=== PATIENT | male | born 1985 | race Caucasian/White ===

== ENCOUNTER 2017-02-24 18:15 | Emergency (ER) | payer OTHER ==
[~2017-02-24] VITALS: Ht 188 cm; Wt 127.8 kg
[2017-02-24] MEDS ORDERED: OMNIPAQUE 350 MG/ML, 100ML BOTTLE ONE (19:19)
[2017-02-24] MEDS ORDERED: SODIUM CHLORIDE 0.9% 1,000ML IVBOLUS ONE (19:30)
[2017-02-24] MEDS ORDERED: CLINDAMYCIN PMX 600MG/50ML 50 ML IVPB ONE (19:30)
[2017-02-24] MEDS ORDERED: SODIUM CHLORIDE FLUSH 10ML SYR IVF ONE (19:30)
[2017-02-24] MEDS ORDERED: CLINDAMYCIN PMX 600MG/50ML 50 ML ONE (19:31)
[2017-02-24 19:48] LABS: BLOOD UREA NITROGEN 9 mg/dL (7-18)
[2017-02-24 20:50] VITALS: BP 152/68
== END 2017-02-24 21:47 | disposition home or self-care (01) ==
LOC: ED 21:00
DX: J36 Peritonsillar abscess (principal); R07.0 Pain in throat; F17.210 Nicotine dependence, cigarettes, uncomplicated
CPT/HCPCS: 36415; 70491; 80048; 82040; 85025; 96365; 99285; J7030; Q9967

== ENCOUNTER 2018-04-24 14:23 | Emergency (ER) | payer OTHER ==
[~2018-04-24] VITALS: Ht 185.4 cm; Wt 128.1 kg
[2018-04-24 14:41] VITALS: BP 153/91
[2018-04-24] MEDS ORDERED: DEXAMETHASONE 4 MG TABLET ONE ×2 (14:56→14:58)
[2018-04-24] MEDS ORDERED: DEXAMETHASONE 4 MG TABLET PO ONE (15:00)
[2018-04-24] MEDS ORDERED: HYDROcodone/APAP 7.5-325MG/15ML UDC ONE (15:15)
[2018-04-24] MEDS ORDERED: HYDROcodone/APAP 7.5-325MG/15ML UDC PO ONE (15:30)
== END 2018-04-24 15:39 | disposition home or self-care (01) ==
LOC: ED 15:00
DX: J03.00 Acute streptococcal tonsillitis, unspecified (principal); F17.210 Nicotine dependence, cigarettes, uncomplicated; E66.9 Obesity, unspecified
CPT/HCPCS: 99283